=== PATIENT | male | born 2000 | race Caucasian/White ===

== ENCOUNTER 2018-08-02 22:38 | Emergency (ER) | payer SELFPAY ==
[~2018-08-02] VITALS: Ht 172.7 cm; Wt 75.6 kg
[2018-08-02 22:44] VITALS: Ht 172.7 cm; Wt 75.6 kg
[2018-08-03] MEDS ORDERED: LIDOCAINE/MYLANTA 40 ML BTL PO STA (00:04)
[2018-08-03] MEDS ORDERED: FAMOTIDINE 20 MG TAB PO STA (00:04)
[2018-08-03] MEDS ORDERED: FAMO-96 PO (03:14)
[2018-08-03 03:26] VITALS: BP 107/57; PULSE 64; RESP 17
--- NOTE | 2018-08-03 03:29 | ERD ---
ER Documentation Chief Complaint Chief Complaint BIB SELF, CC: RIGHT ABD. PAIN X 2 HOURS HPI Is a 18-year-old male who presents for evaluation of right-sided abdominal pain. The patient endorses a burning-like pain, he denies flank pain, no urinary symptoms, he denies chest pain or shortness of breath. He had occult vasectomy 2 years ago, he denies fever. ROS All systems reviewed and are negative except as per history of present illness. Medications Home Meds Active Scripts Famotidine* (Pepcid*) 20 Mg Tablet, 20 MG PO BID for 10 Days, TAB Prov:PARISA TORRES MD 08/03/18 Allergies Allergies: Coded Allergies: No Known Allergy (Unverified , 08/02/18) PMhx/Soc Hx Alcohol Use: No Hx Substance Use: No Hx Tobacco Use: No Smoking Status: Never smoker Physical Exam Vitals Vital Signs Date Temp Pulse Resp B/P (MAP) Pulse Ox O2 O2 Flow FiO2 Time Delivery Rate 08/03/18 63 18 99/75 (83) 98 Room Air 00:30 08/02/18 98.2 87 19 121/85 100 22:44 (97) Physical Exam Const: No acute distress Head: Atraumatic Eyes: Normal Conjunctiva ENT: Normal External Ears, Nose and Mouth. Neck: Full range of motion. No meningismus. Resp: Clear to auscultation bilaterally Cardio: Regular rate and rhythm, no murmurs Abd: Soft, non tender, mild tenderness to right upper quadrant. Normal bowel sounds Skin: No petechiae or rashes Back: No midline or flank tenderness Ext: No cyanosis, or edema Neur: Awake and alert Psych: Normal Mood and Affect Result Diagram: 08/03/18 0045 08/03/18 0045 Results 24 hrs Laboratory Tests Test 08/03/18 00:45 White Blood Count 6.4 10^3/ul Red Blood Count 4.40 10^6/ul Hemoglobin 13.9 g/dl Hematocrit 40.2 % Mean Corpuscular Volume 91.4 fl Mean Corpuscular Hemoglobin 31.6 pg Mean Corpuscular Hemoglobin Concent 34.6 g/dl Red Cell Distribution Width 11.9 % Platelet Count 275 10^3/UL Mean Platelet Volume 10.1 fl Immature Granulocytes % 0.300 % Neutrophils % 50.0 % Lymphocytes % 38.3 % Monocytes % 8.6 % Eosinophils % 2.2 % Basophils % 0.6 % Nucleated Red Blood Cells % 0.0 /100WBC Immature Granulocytes # 0.020 10^3/ul Neutrophils # 3.2 10^3/ul Lymphocytes # 2.5 10^3/ul Monocytes # 0.6 10^3/ul Eosinophils # 0.1 10^3/ul Basophils # 0.0 10^3/ul Nucleated Red Blood Cells # 0.0 10^3/ul Sodium Level 144 mmol/L Potassium Level 3.8 mmol/L Chloride Level 103 mmol/L Carbon Dioxide Level 29 mmol/L Anion Gap 12 Blood Urea Nitrogen 12 mg/dl Creatinine 0.80 mg/dl Est Glomerular Filtrat Rate mL/min > 60 mL/min Glucose Level 98 mg/dl Calcium Level 9.6 mg/dl Total Bilirubin 0.2 mg/dl Direct Bilirubin 0.00 mg/dl Indirect Bilirubin 0.2 mg/dl Aspartate Amino Transf (AST/SGOT) 32 IU/L Alanine Aminotransferase (ALT/SGPT) 19 IU/L Alkaline Phosphatase 79 IU/L Total Protein 7.3 g/dl Albumin 4.8 g/dl Globulin 2.50 g/dl Albumin/Globulin Ratio 1.92 Lipase 62 U/L Current Medications Medications Dose Sig/Kwame Start Time Status Last (Trade) Ordered Route PRN Stop Time Admin Dose Reason Admin Famotidine 20 mg ONCE STAT 08/03/18 DC 08/03/18 (Pepcid) PO 00:04 00:32 08/03/18 00:06 40 ml ONCE STAT 08/03/18 DC 08/03/18 Miscellaneous PO 00:04 00:31 Medication 08/03/18 (Gi Cocktail 00:06 (2)) Procedures/MDM This is a 18-year-old male presents for dilation of right upper quadrant pain. The patient had no peritoneal signs on exam, he is afebrile and nontoxic, his pain subsided in the ED, his workup was overall unremarkable, and ultrasound showed no evidence of retained stone. At this point I do not suspect acute intra-abdominal pathology, I do not suspect kidney stones, given no urinary symptoms, no flank pain, at discharge the patient was in no acute distress. Departure Diagnosis: Primary Impression: Abdominal pain Abdominal location: unspecified location Qualified Codes: R10.9 - Unspecified abdominal pain Condition: Stable Patient Instructions: Abdominal Pain Additional Instructions: Call your primary care doctor TOMORROW for an appointment during the next 2-3 days.See the doctor sooner or return here if your condition worsens before your appointment time. PARISA TORRES MD Aug 03, 2018 03:29
== END 2018-08-03 03:26 | disposition home or self-care (01) ==
LOC: E/R 22:38
DX: R10.9 Unspecified abdominal pain (principal)
CPT/HCPCS: 36415; 76705; 80053; 83690; 85025